=== PATIENT | female | born 2000 | race African-American/Black ===

== ENCOUNTER → 2024-06-01 20:07 | Outpatient (ROUT) | payer OTHER, SELFPAY ==
[2024-06-01 21:41] LABS: Urine N gonorrhoeae NOT DETECTED
[2024-06-01 21:43] LABS: Urine Chlamydia NOT DETECTED
== END ==
PROVIDERS: Visit Provider Obstetrics & Gynecology
DX: Z34.80 Encounter for supervision of other normal pregnancy, unspecified trimester (principal); Z3A.10 10 weeks gestation of pregnancy
CPT/HCPCS: 87491; 87591

== ENCOUNTER → 2024-06-13 14:15 | Outpatient (CLI) | payer OTHER, SELFPAY ==
[2024-06-13 15:22] LABS: Add Manual Diff / Slide Review NO; Basophils Absolute Auto 0 /uL (0-100); Basophils Percent Auto 0.3 % (0-2); Eosinophils Absolute Auto 0 /uL (0-450); Eosinophils Percent Auto 0.7 % (2-4); Hematocrit 36.3 % (36-46); Hemoglobin 12.4 g/dL (12.0-16.0); Lymphocytes Absolute Auto 1100 /uL (1100-4500); Lymphocytes Percent Auto 17.6 % (25-40); Mean Corpuscular HGB Conc 34.3 % (30-36); Mean Corpuscular Hemoglobin 29.4 PG (26-34); Mean Corpuscular Volume 85.7 fL (80-100); Monocytes Absolute Auto 700 /uL (0-900); Monocytes Percent Auto 10.7 % (3-14); Neutrophils Absolute Auto 4300 /uL (1500-7000); Neutrophils Percent Auto 70.7 % (50-75); Platelet Count 267 X10^3/uL (150-400); Red Blood Cell Count 4.23 X10^6/uL (4.0-5.2); Red Cell Distribution Width 14.3 % (11.6-14.8); White Blood Cell Count 6.1 X10^3/uL (4.5-11.0)
[2024-06-13 15:50] LABS: Natera Collection Specimen Collected
[2024-06-14 05:10] LABS: RPR Screen Non Reactive (Non Reactive); Varicella IgG Antibody Reactive (Non Reactive)
[2024-06-14 17:26] LABS: Hepatitis B Surface Antigen NEGATIVE s/c (NEGATIVE); Rubella Antibody IgG 21.8 IU/mL (>15)
[2024-06-14 17:44] LABS: HIV 1 & 2 Ab/Ag 4th Gen Combo NEGATIVE (NEGATIVE); Hep C Virus Ab w/Reflex Quant NEGATIVE s/c (NEGATIVE)
== END ==
PROVIDERS: Referring Provider Obstetrics & Gynecology; Visit Provider Obstetrics & Gynecology
DX: Z34.81 Encounter for supervision of other normal pregnancy, first trimester (principal)
CPT/HCPCS: 36415; 80055; 86787; 86803; 86850; 86900; 86901; 87086; 87389

== ENCOUNTER → 2024-08-14 11:03 | Outpatient (CLI) | payer OTHER, SELFPAY ==
--- NOTE | 2024-08-14 11:04 | DI.US.S_ITS ---
PROCEDURE: US OB >= 14 WEEKS FETUS INDICATIONS: 20 week anatomy OUTSIDE/PRIOR DATING DATA: Last menstrual period (LMP): 03/26/2024 LMP-based estimated date of delivery (BLANCA): 12/31/2024 The calculations are made using the working BLANCA of 12/31/2024. TECHNIQUE: Real-time scanning was performed of the fetus, with image documentation and biometric measurements. Endovaginal scanning: Performed COMPARISON: None. FINDINGS: General: A single living intrauterine gestation is present. Presentation: Variable Placenta: Placental position is posterior, without previa. Posterior placental edge is approximately 3.3 cm from the internal os. Amniotic fluid index: 14.4 cm, normal range is 5-24 cm. Single deepest vertical pocket is 4.0 cm. heart rate: 158 beats per minute. Maternal cervical canal: 2.4 cm in length during transabdominal study and measures 4.3 cm in length during transvaginal portion of the study. biometrics: Biparietal diameter: 4.6 cm, 19 weeks, 6 days. Head circumference: 17.1 cm, 19 weeks, 5 days. Abdominal circumference: 14.4 cm, 19 weeks, 5 days. Femur length: 3.2 cm, 19 weeks, 6 days. Clinically estimated gestational age: 20 weeks, 1 day Composite gestational age from present scan: 19 weeks, 6 days. Estimated weight and percentile: 310 grams, 24 percent. Anatomic survey: Neuro: Ventricles are non-dilated at less than 10 mm. Cisterna magna is normal at 3-11 mm. Cerebellum is normal in size and morphology. Nuchal skin fold: Normal at less than 6 mm between 14-21 weeks gestational age. Face: Nose and lips, facial profile are normal. Spine: No evidence for spina bifida. Heart: 4-chambered heart is present, with normal ventricular outflow tracts. Diaphragm: Diaphragm is intact. Stomach: Left-sided stomach is present. Debris is noted within the stomach lumen. Kidneys: No hydronephrosis. Normal is less than 5 mm in 2nd trimester, less than 7 mm in 3rd trimester. Cord: 3-vessel cord has orthotopic insertion. Bladder: Normal in size. Extremities: All 4 extremities identified. IMPRESSION: 1. Single live intrauterine gestation with fetus in variable presentation. heart rate is 158 beats per minute. 2. Normal BJORN at 14.4 cm. 3. Cervix is closed and measures between 2.4 cm to 4.3 cm in length during the exam suggest ultrasound follow-up. Placenta position is posterior without placenta previa. 4. Normal growth with estimated weight at 24 percent. 5. Normal anatomic survey. Debris is seen within stomach lumen. We strive to produce accurate, complete, and clear reports of imaging services. To assist us in improving patient care, this report was composed using standard report templates and voice recognition software. Therefore, it may contain abnormal punctuation, insertions and/or omissions. Occasional wrong-word or sound-alike substitutions may occur. Though we review the report and make efforts to correct it, we do recommend that the report be read carefully in proper context to recognize any text inaccuracies. Dictated by: Diego Garcia M.D. on 08/14/2024 at 16:56 Approved by: Diego Garcia M.D. on 08/14/2024 at 17:00
== END ==
PROVIDERS: Referring Provider Obstetrics & Gynecology; Visit Provider Obstetrics & Gynecology
DX: Z34.82 Encounter for supervision of other normal pregnancy, second trimester (principal); Z3A.20 20 weeks gestation of pregnancy
CPT/HCPCS: 76811

== ENCOUNTER → 2024-08-31 09:46 | Outpatient (CLI) | payer OTHER, SELFPAY | PROVIDERS: Referring Provider Obstetrics & Gynecology; Visit Provider Obstetrics & Gynecology | DX: Z34.92 Encounter for supervision of normal pregnancy, unspecified, second trimester (principal); Z3A.21 21 weeks gestation of pregnancy | CPT/HCPCS: 36415; 82105 ==